=== PATIENT | female | born 1970 | race Caucasian/White ===

== ENCOUNTER 2018-02-14 10:44 | Observation (INO) | payer OTHER ==
[2018-02-14] MEDS ORDERED: NS 1,000 ML IV ONE (10:50)
--- NOTE | 2018-02-14 11:08 | CPEKG ---
Heart Rate: 87 RR Interval: 690 P-R Interval: 132 QRSD Interval: 78 QT Interval: 372 QTC Interval: 448 P [place]: 0 QRS [place]: 17 T Wave [place]: 34 EKG Severity - BORDERLINE ECG - EKG Impression: SINUS RHYTHM EKG Impression: ATRIAL PREMATURE COMPLEX EKG Impression: BORDERLINE T WAVE ABNORMALITIES Electronically Signed By: Dusty Mcclain 14-Feb-2018 11:19:57
[2018-02-14 11:21] LABS: PLATELET COUNT 338 10^3/uL (150-400)
--- NOTE | 2018-02-14 11:21 | PDGENHP ---
History & Physical Chief Complaint: palpitations, presyncope Relevant Physical Exam: s1s2 rrr cta ao3 Cardiorespiratory Assessment: EPS to assess for wide complex tachycardia, palpitations and presyncope
[2018-02-14 11:30] LABS: INR 0.9 (0.83-1.16); PROTIME(PATIENT) 12.4 SEC (12.0-15.0)
[2018-02-14] MEDS ORDERED: MIDAZOLAM 2 MG/2 ML VIAL IVP ONE (11:48)
--- NOTE | 2018-02-14 11:48 | PDANEPAE ---
ANE History of Present Illness SVT for EP study ANE Past Medical History - Cardiovascular History Hx Hypertension: No Hx Arrhythmias: Yes Hx Chest Pain: No Hx Coronary Artery / Peripheral Vascular Disease: No Hx CHF / Valvular Disease: No Hx Palpitations: Yes - Pulmonary History Hx COPD: No Hx Asthma/Reactive Airway Disease: No Hx Recent Upper Respiratory Infection: No Hx Oxygen in Use at Home: No Hx Sleep Apnea: No ANE Review of Systems Review of systems is: negative Review of Systems: - Exercise capacity Exercise capacity: >=4 METS ANE Patient History - Allergies Allergies/Adverse Reactions: egg [eggs] Allergy (Verified 02/09/18 11:23) Penicillins Allergy (Verified 02/09/18 11:23) UNK Sulfa (Sulfonamide Antibiotics) Allergy (Verified 02/09/18 11:23) Swelling/neck,face,throat - Home Medications Home medications: home medication list seen and reviewed Home Medications: Diltiazem [Cardizem Immediate Release] 30 mg PO DAILY PRN 02/09/18 [Last Taken Unknown] Herbals/Supplements -Info Only 1 ea PO DAILY 02/09/18 [Last Taken 02/09/18] Metoprolol Succinate Xr [Toprol Xl 50 mg (*)] 50 mg PO DAILY 02/09/18 [Last Taken 02/07/18] Multivitamins [Multivitamin (*)] 1 each PO DAILY 02/09/18 [Last Taken 02/09/18] [place]-3 Fatty Acids [Fish Oil 1000 mg (*)] 1,000 mg PO DAILY 02/09/18 [Last Taken 02/09/18] - Anes Hx Anes Hx: no prior problems - Smoking Hx Smoking Status: Never smoked ANE Labs/Vital Signs - Labs Result Diagrams: 02/14/18 11:10 02/14/18 11:10 - Vital Signs Height: 155 cm Weight: 68 kg ANE Physical Exam - Airway Neck exam: FROM Mallampati Score: Class 1 Mouth exam: normal dental/mouth exam - Pulmonary Pulmonary: no respiratory distress - Cardiovascular Cardiovascular: regular rate and rhythym - ASA Status ASA Status: II ANE Anesthesia Plan Anesthesia Plan: general endotracheal anesthesia
[2018-02-14] MEDS ORDERED: ONDANSETRON 4 MG/2 ML VIAL ONE ×2 (11:49→14:54)
[2018-02-14] MEDS ORDERED: DEXAMETHASONE 4 MG/ML VIAL ONE (11:49)
[2018-02-14] MEDS ORDERED: fentaNYL 100 MCG/2 ML INJ ONE (11:49)
[2018-02-14] MEDS ORDERED: PROPOFOL 200 MG/20 ML VIAL ONE ×2 (11:49→14:11)
[2018-02-14] MEDS ORDERED: ROCURONIUM 100 MG/10 ML VIAL ONE (11:50)
[2018-02-14] MEDS ORDERED: LIDOCAINE 2% 5 ML SDV ONE (11:50)
[2018-02-14] MEDS ORDERED: LIDOCAINE 1% 300 MG/30 ML SDV ONE (12:01)
[2018-02-14] MEDS ORDERED: HEPARIN 10,000 UNIT/10 ML MDV (1,000 UNIT/ML) ONE ×2 (12:01→13:26)
[2018-02-14] MEDS ORDERED: BUPIVACAINE 0.5% 30 ML SDV ONE (12:01)
[2018-02-14] MEDS ORDERED: ISOPROTERENOL HCL/D5W 0.2 MG/50 ML BAG IV ONE (12:02)
[2018-02-14] MEDS ORDERED: MIDAZOLAM 2 MG/2 ML VIAL ONE (12:07)
[2018-02-14] MEDS ORDERED: HEPARIN/DEXTROSE 25,000 UNIT/500 ML BAG ONE (13:26)
--- NOTE | 2018-02-14 13:41 | POSTANESTH ---
Post Anesthetic Evaluation Cardiovascular Status: Normal, Stable Respiratory Status: Normal, Stable Level of Consciousness/Mental Status: Can Participate in Eval, Alert and Oriented Pain Control: Adequate, Prn Tx Ordered Nausea/Vomiting Control: Inadeq, Add Tx Reqired Complications Possibly Related to Anesthesia: None Noted
[2018-02-14] MEDS ORDERED: PHENYLEPHRINE HCL 100 MCG/ML SYR ONE (13:52)
[2018-02-14] MEDS ORDERED: ROCURONIUM 50 MG/5 ML VIAL ONE ×2 (14:11)
[2018-02-14] MEDS ORDERED: PROTAMINE SULFATE 50 MG/5 ML VIAL IVP ONE (14:35)
[2018-02-14] MEDS ORDERED: ATROPINE SULFATE 1 MG/10 ML SYR ONE (14:59)
[2018-02-14] MEDS ORDERED: METOCLOPRAMIDE 10 MG/2 ML VIAL IVP PRN (15:03)
[2018-02-14] MEDS ORDERED: PROMETHAZINE HCL 25 MG/ML INJ IVP PRN (15:03)
[2018-02-14] MEDS ORDERED: NS 500 ML IV PRN (15:03)
[2018-02-14] MEDS ORDERED: ONDANSETRON 4 MG/2 ML VIAL IVP PRN (15:03)
[2018-02-14] MEDS ORDERED: NALOXONE HCL 0.4 MG/ML INJ IVP PRN (15:03)
[2018-02-14] MEDS ORDERED: ALBUTEROL 3 ML DEYVIAL IH PRN (15:03)
--- NOTE | 2018-02-14 15:12 | EPPROC ---
Electrophysiology Procedure Note: ELECTROPHYSIOLOGIC STUDY AND CATHETER MEDIATED ABLATION OF LEFT POSTEROLATERAL ACCESSORY PATHWAY RETROAORTIC APPORACH FOR ACCESS Procedures performed: 10868-86 EP evaluation with RA/RV/LA pace/record, with arrhythmia induction 22407-87 EP evaluation with RA/RV pace record, insert/reposition catheter, with arrhythmia induction 83285 Intracardiac catheter ablation, SVT arrhythmogenic focus 77877 3D mapping Fluoroscopy INDICATION: Palpitations with presyncope since teenage years PROCEDURE: Catheters and anesthesia: The patient arrived in the Electrophysiology Laboratory in the fasting state. The right clavicular region, right groin, and left groin area were prepped and draped in the usual sterile manner. Anesthesiologist Dr. Irasema Mcneil administered general anesthesia. Appropriate non-invasive blood pressure, pulse oximetry and end-tidal CO2 monitoring was established. All catheters were placed percutaneously using the modified Seldinger technique , and advanced into position under fluoroscopic guidance One #7 Polish deflectable octapolar electrode catheter was advanced to the His-bundle position via the left femoral vein (2mm spacing). One #7 [place] deflectable catheter with 10 pairs of electrodes was placed via the right femoral vein into the coronary sinus. SL2 sheath was needed for access to the CS. Programmed stimulation of the right atrium, right ventricle and coronary sinus ( left atrium) was performed. Parahisian pacing demonstrated two patterns of retrograde atrial activation during His bundle capture and loss of His bundle capture. This demonstrated the presence of an accessory pathway ( 0500 oclock at the mitral annulus as seen in the UGANDAN view). 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 In preparation for ablation of the left posterolateral accessory pathway right femoral artery was accessed. Heparin was given to keep ACT >250 s. Catheter was advanced (with J curve) from descending aorta into the left ventricle. Mapping was perfomed during ventricular pacing. A sharp retrograde accessory pathway potential was recorded at 0500 oclock at the mitral annulus as seen in the UGANDAN view. This preceded the earliest atrial activation by 15 ms. RF#1 was delivered to this site. RF#1 blocked conduction in the accessory pathway after 5 seconds of initiation of ablation. Additional RF 2-4 were delivered slightly anterior and posterior to RF1 site. Programmed stimulation from the RA, CS, right and left ventricle during the baseline state post ablation and during infusion of isoproterenol 2 and 4 mcg/ min confirmed that there was no conduction over the left posterolateral accessory pathway and no orthodromic AVRT could be induced. There was antegrade slow AV leida pathway conduction but no AVNRT was inducible. Up to 4 beats of atrial tachycardia were also seen but not targeted for ablation. Programmed ventricular stimulation did not induce any VT. The catheters were removed. Vascular access sheaths were removed in the EP lab after placing subcutaneous pursestring suture. The patient was transferred to the cardiovascular holding area in stable condition. There were no apparent complications. Results: A. Spontaneous Intervals: Pre ablation SCL 640 ms AH 55 ms HV 40 ms Post ablation SCL 680 ms AH 55 ms HV 40 ms B. Antegrade AV leida function (decremental pacing) Pre ablation FPERP 340 ms SPERP 330 ms WBB CL 320 ms Post ablation FPERP 290 ms WBB CL 280 ms C. Retrograde AV leida function (decremental pacing) Post ablation FPERP 310 ms WBB CL 300 ms D. Accessory pathway function 1. A single AV accessory pathway was identified at the mitral annulus at 0500 oclock as seen in the UGANDAN view. 2. The AV accessory pathway conducted in the retrograde direction. During ventricular pacing 1:1 conduction over the accessory pathway was maintained to a cycle length of 290 ms, block over the AP occurred at 280 ms. E. Arrhythmias: 1. Atrial premature beats induced orthodromic AV reentrant tachycardia using the left posterolateral accessory AV pathway. Tachycardia cycle length: 320 ms AH interval 170 ms HV interval 40ms VA interval (His) 110 ms Shortest VA interval 70 ms at 0500 o clock mitral annulus CONCLUSIONS: 1. A single left posterolateral accessory pathway, which exhibited conduction in the retrograde direction. 2. 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 3. Successful ablation of the left posterior accessory pathway with elimination of AV reentrant tachycardia. Retroaortic approach for access. 4. No apparent complications. Patient Problems: Problems Problem Status Onset Palpitations Acute
--- NOTE | 2018-02-14 15:28 | CPEKG ---
Heart Rate: 79 RR Interval: 759 P-R Interval: 116 QRSD Interval: 76 QT Interval: 428 QTC Interval: 491 P [place]: 68 QRS [place]: 18 T Wave [place]: 25 EKG Severity - BORDERLINE ECG - EKG Impression: SINUS RHYTHM EKG Impression: BORDERLINE PROLONGED QT INTERVAL Electronically Signed By: Dusty Mcclain 15-Feb-2018 08:43:26
[2018-02-15 04:10] LABS: PLATELET COUNT 319 10^3/uL (150-400)
[2018-02-15] MEDS ORDERED: OMEGA-3 FATTY ACIDS 1,000 MG CAP PO SCH (09:00)
[2018-02-15] MEDS ORDERED: ASPIRIN 81 MG CHEWABLE TAB PO SCH (09:00)
[2018-02-15] MEDS ORDERED: MULTIVITAMINS 1 EACH TAB PO SCH (09:00)
--- NOTE | 2018-02-15 09:01 | ASMTCMCOM ---
CM Note CM Note Notes: 02/15/2018 Case Management Note Reviewed chart. Pt admitted post EP to address presyncope, palpitations and wide complex tachycardia. There are no PT or OT evals ordered at this time. There are no case management d/c needs identified d/t pt age, employment status and independence in ADL's prior to admission. Case Management d/c poc: independent. Case Management available if needs change. Date Signed: 02/15/2018 08:59 AM Electronically Signed By:Vane John RN
--- NOTE | 2018-02-15 09:08 | CPEKG ---
Heart Rate: 72 RR Interval: 833 P-R Interval: 108 QRSD Interval: 80 QT Interval: 396 QTC Interval: 434 P [place]: 43 QRS [place]: 4 T Wave [place]: 16 EKG Severity - BORDERLINE ECG - EKG Impression: SINUS RHYTHM EKG Impression: SHORT AL INTERVAL EKG Impression: BORDERLINE T ABNORMALITIES, ANTERIOR LEADS Electronically Signed By: Dusty Mcclain 15-Feb-2018 16:27:18
[2018-02-15 11:04] VITALS: BP 112/74
--- NOTE | 2018-02-15 11:51 | ECHO ---
[email or web address] [address] [address] Main: [phone] Fax: Transthoracic Echocardiogram Name: JORGE ALLEN MR#: [id number] Study Date: 02/15/2018 Study Time: 08:13 AM Date of : 1970 Age: 47 year(s) Height: 154.9 cm (61 in.) Weight: 67.59 kg (149 lb.) BSA: 1.67 m2 Gender: Female Examination: Echo Indication: Post EP Image Quality: Contrast: Requested by: Dusty Mcclain BP: 137 mmHg/72 mmHg Heart Rate: Rhythm: Normal sinus rhythm Indication: Post EP Procedure Staff Critical Care Nurse Practitioner: Gustavo Kiran RDCS Reading Physician: Dusty Mcclain MD Requesting Provider: Conclusions: Normal global systolic LV function. Normal diastolic LV function. No pericardial effusion. Measurements: Chambers Valvular Assessment AV/MV Valvular Assessment TV/PV Normal Normal Normal Name Value Range Name Value Range Name Value Range Ao So (MM): 2.6 cm (2.2 cm-3.7 AV Vmax: 1.06 m/s (1 m/s-1.7 PV Vmax: 0.87 m/s (0.6 m/s-0.9 cm) m/s) m/s) IVSd (2D): 0.8 cm (0.6 cm-1.1 AV maxP mmHg ( - ) PV PGmax: 3 mmHg ( - ) cm) LVOT Vmax: 0.54 m/s (0.7 m/s-1.1 LVDd (2D): 4.2 cm (3.9 cm-5.3 m/s) cm) MV E Vmax: 0.72 m/s ( - ) LVDs (2D): 2.5 cm (2.1 cm-4 MV A Vmax: 0.38 m/s ( - ) cm) MV E/A: 1.89 ( - ) LVPWd (2D): 0.7 cm ( - ) LVEF (2D): 72 (>=54 %) Continued Measurements: Chambers Valvular Assessment AV/MV Name Value Name Value LADs Lon.2 cm MV E' Septal: 0.10 m/s LA Area: 10.9 cm2 MV E/E' Septal: 6.90 LA Volume: 25 ml MV E/E' Lateral: 6.50 LA Volume Index: 15.0 ml/m2 Patient: JORGE ALLEN Study Date: 02/15/2018 Page 1 of 2 08:13 AM Findings: Left Ventricle: Normal size left ventricle. No LV hypertrophy. Normal global systolic LV function. EF is 72 %. No regional wall motion abnormality. Normal diastolic LV function. Right Ventricle: Normal size right ventricle. Left Atrium: The left atrium is normal in size. Right Atrium: The right atrium is normal in size. Mitral Valve: The mitral valve is normal in appearance and function. Aortic Valve: The aortic valve is normal in appearance and function. Tricuspid Valve: The tricuspid valve is normal in appearance and function. Pulmonic Valve: The pulmonic valve is normal in appearance and function. Aorta: The aorta is normal. Pericardium: No pericardial effusion. (No Signature Object) Patient: JORGE ALLEN Study Date: 02/15/2018 Page 2 of 2 08:13 AM D:_[id number]
--- NOTE | 2018-02-15 12:31 | ASDISCHSUM ---
Discharge Information Plan Status:Home with No Needs Medically Cleared to Leave:02/15/2018 Discharge Date:02/15/2018 CM D/C Disposition:Home, Routine, Self-Care ADT D/C Disposition:Home, Routine, Self-Care Projected Discharge Date:02/15/2018 Transportation at D/C:Family Discharge Delay Reason: Follow-Up Date:02/15/2018 Discharge Slot: Final Diagnosis: Placement Information Patient Contact Information Contact Name:CELESTINO Relationship:Mother Address: Work Phone: City: [facility] Phone: State/[place] Code: Email: Financial Information Financial Class:HMO and PPO Plans Primary Plan Desc:[employer] Primary Plan Number:[id number] Secondary Plan Desc: Secondary Plan Number: Assessment Information LACE LACE Length of stay for Answers: Less than 1 day current admission Acuity / Level of Answers: No Care: Did the patient have an inpatient admission? Comorbidities - select Answers: Other Notes: wide complex all that apply tachycardia, palpitatio ns, presyncope # of Emergency department Answers: 0 visits in the last 6 months Score: 1 Date Signed: 02/15/2018 12:30 PM Electronically Signed By:Vane John RN [facility] CM Progress Note CM Note CM Note Notes: 02/15/2018 Case Management Note Reviewed chart. Pt admitted post EP to address presyncope, palpitations and wide complex tachycardia. There are no PT or OT evals ordered at this time. There are no case management d/c needs identified d/t pt age, employment status and independence in ADL's prior to admission. Case Management d/c poc: independent. Case Management available if needs change. Date Signed: 02/15/2018 08:59 AM Electronically Signed By:Vane John RN Intervention Information
--- NOTE | 2018-02-15 18:52 | GDS ---
[f rep st] DISCHARGE SUMMARY ADMIT DIAGNOSES: 1. Nonsustained wide-complex tachycardia. 2. Supraventricular tachycardia. 3. Presyncope. 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 COURSE OF HOSPITALIZATION: Mary was seen [address] Nyla Sorenson in clinic, with episodes of nonsustained rapid heart rates. She has a history of nonsustained wide-complex tachycardia, which was seen on stress testing previously. She saw Dr. Mcclain in November 2017, and at that time, he recommended electrophysiology study and likely ablation therapy. Her main complaint was episodes of palpitations, which were not controlled with low-dose metoprolol. At times she had presyncope episodes without syncope. Over time, she was having longer episodes of tachyarrhythmias with some chest discomfort and shortness of breath. She did have a nonischemic stress echocardiogram done in the recent past. It was recommended by Dr. Sorenson to proceed with the upcoming electrophysiology study. She was taken to the electrophysiology lab by Dr. Dusty Mcclain on 02/14/2018. He was able to isolate the pathway. Conclusion of his electrophysiology study: 1. A single left posterior lateral accessory pathway, which exhibited conduction in the retrograde direction. 2. 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 3. Successful ablation of the left posterior accessory pathway with elimination of AV reentrant tachycardia. Retroaortic approach was utilized for access. 4. There were no apparent complications. She was taken to the PCU for overnight observation where she has done well. Her bilateral groin sites are intact with no bleeding, induration or pain. She is anxious about having subsequent rapid heart rates. Dr. Mcclain did come in and visit with her and gave her reassurance. He discussed the procedure with her and the successful ablation of the left posterior pathway, which did eliminate the reentrant tachycardia. She is feeling well with no recurring palpitations. At his time, she currently is stable for discharge. DISCHARGE MEDICATIONS: She will go home on omega-3 fatty acid fish oil 1000 mg daily, multivitamin daily, herbal supplements 1 daily, aspirin 81 mg daily, diltiazem 30 mg as needed for breakthrough rapid heart rate, aspirin 81 mg daily. Metoprolol succinate was stopped. PHYSICAL EXAMINATION: VITAL SIGNS: On day of discharge, blood pressure 112/74 , heart rate 82 and regular, oxygen saturation 96%, temperature 36.9 Celsius. EKG showed normal sinus rhythm. CARDIAC: Heart rate regular. No murmurs, rubs , gallops. RESPIRATORY: Lung sounds are clear to auscultation. No wheezes, rales, or rhonchi. SKIN: Bilateral groin sites are intact with no bleeding, induration or pain. LOWER EXTREMITIES: Peripheral pulses are intact. No edema was noted. PROCEDURE: Echocardiogram on 02/15/2018: Left ventricular function is 72%. Normal wall motion abnormalities. No significant valve problems. No pericardial effusion. DISCHARGE PLAN: 1. Groin precautions were given verbally and written for 1 week. No heavy lifting, pushing, pulling greater than 10 pounds. 2. No tub baths. 3. Should site bleed, hold firm pressure to site, go to the emergency room if bleeding does not stop. 4. Follow up with Dr. Mcclain in 4 weeks. This has been scheduled previously. 5. She is instructed to call the office should she have any concerns or questions. At this time, she currently is stable for discharge. /[id number]/MODL MTDD
== END 2018-02-15 13:23 | disposition home or self-care (01) ==
LOC: FCATH 10:44 → F2W 14:35
PROVIDERS: ADMIT Internal Medicine Cardiovascular Disease; ATTEND Internal Medicine Cardiovascular Disease
DX: I47.1 Supraventricular tachycardia (principal); R55 Syncope and collapse
CPT/HCPCS: 93005; 93306; 93613; 93621; 93623; 93653; C1730; C1732; C1893; G0378; C1731; J0461; J1100; J1644; J2250; J2370; J2405; J2704; J2720; J3010

== ENCOUNTER 2018-06-20 14:07 | Emergency (ER) | payer OTHER ==
--- NOTE | 2018-06-20 14:26 | EDPHY ---
HPI/HX/ROS/PE/MDM Narrative: CHIEF COMPLAINT: Chest pain, shortness of breath HPI: The patient is a 47-year-old female with a history of prior wide complex tachycardia that was successfully ablated earlier this year. The patient has been her usual state of health until yesterday. She states she went on a run and did not experience discomfort during the run but did feel slightly ill afterwards. She when out to dinner that evening and noted shortness of breath and difficulty catching her breath. She describes some chest discomfort that time without klaus pain. She then developed severe watery diarrhea which lasted over the course of the evening and through the morning. She denies any blood in her stool, abdominal pain or vomiting. She was able to go to work this morning but continues to experience shortness of breath and chest discomfort with some radiation to her left neck and arm. She called [facility] this afternoon who recommended that she proceed to the emergency department. REVIEW OF SYSTEMS: Aside from elements discussed in the HPI, a comprehensive 10-point review of systems was reviewed and is negative. PMH: Includes cardiac ablation, no known coronary artery disease. SOCIAL HISTORY: Works at the [employer]. Denies drug abuse. PHYSICAL EXAM: General:Patient is alert, in no acute distress. ENT:Eyes are normal to inspection. ENT inspection normal. Neck: Normal inspection. Full range of motion. Respiratory:No respiratory distress. Breath sounds normal bilaterally. Cardiovascular: Regular rate and rhythm. Strong peripheral pulses. Normal cap refill. Abdomen:The abdomen is nontender to palpation. There are no peritoneal signs. There are normal bowel sounds. Back: Normal to inspection. No tenderness to palpation. Skin: Normal color. No rash. Warm and dry. Extremities: Normal appearance. Full range of motion. Neuro: Oriented x3. Normal motor function. Normal sensory function. (Mauricio Pelaez) ED Course: EKG: NSR without ST changes. Patient signed out to Dr. Jack at 2:50pm pending labs and CXR. (Mauricio Pelaez) MDM: Patient's care transferred to [place] at 3:00 p.m.. The patient is well appearing. She is constantly coughing. No fever. Not hypoxic. X-ray consistent with bronchitis. Troponin and D-dimer negative. Her diarrhea and vomiting have resolved. I suspect that this is more of a respiratory illness than cardiac. She will keep her appointment tomorrow with Dr. Mcclain. She declines further workup or testing at this time. (Mykel Jack) - Data Points Imaging Results: Imaging Impressions Chest X-Ray 06/20/18 15:03 Impression: Mild airways disease. Otherwise normal. Laboratory Results: Laboratory Results 06/20/18 14:50 06/20/18 06/20/18 06/20/18 14:57 14:57 14:50 WBC 5.30 10^3/uL 10^3/uL (3.80-9.50) RBC 4.82 10^6/uL 10^6/uL (4.18-5.33) Hgb 14.8 g/dL g/dL (12.6-16.3) Hct 42.9 % % (38.0-47.0) MCV 89.0 fL fL (81.5-99.8) MCH 30.7 pg pg (27.9-34.1) MCHC 34.5 g/dL g/dL (32.4-36.7) RDW 12.6 % % (11.5-15.2) Plt Count 329 10^3/uL 10^3/uL (150-400) MPV 9.7 fL fL (8.7-11.7) Neut % (Auto) 66.2 % % (39.3-74.2) Lymph % (Auto) 24.5 % % (15.0-45.0) [place] % (Auto) 7.4 % % (4.5-13.0) Eos % (Auto) 0.9 % % (0.6-7.6) Baso % (Auto) 0.8 % % (0.3-1.7) Nucleat RBC Rel Count 0.0 % % (0.0-0.2) Absolute Neuts (auto) 3.51 10^3/uL 10^3/uL (1.70-6.50) Absolute Lymphs (auto) 1.30 10^3/uL 10^3/uL (1.00-3.00) Absolute Monos (auto) 0.39 10^3/uL 10^3/uL (0.30-0.80) Absolute Eos (auto) 0.05 10^3/uL 10^3/uL (0.03-0.40) Absolute Basos (auto) 0.04 10^3/uL 10^3/uL (0.02-0.10) Absolute Nucleated RBC 0.00 10^3/uL 10^3/uL (0-0.01) Immature Gran % 0.2 % % (0.0-1.1) Immature Gran # 0.01 10^3/uL 10^3/uL (0.00-0.10) POC Sodium 143 mEq/L mEq/L (135-145) POC Potassium 3.9 mEq/L mEq/L (3.3-5.0) POC Chloride 102.0 mEq/L mEq/L (97-110) POC Total CO2 26 mEq/L mEq/L (22-31) POC BUN 13 mg/dL mg/dL (7-23) POC Creatinine 1.0 mg/dL mg/dL (0.6-1.0) POC Glucose 120 mg/dL H mg/dL (70-100) POC Calcium 10.0 mg/dL mg/dL (8.5-10.4) POC Troponin I 0.00 ng/mL ng/mL (0.00-0.08) Point of Care Test Results: Chemistry 06/20/18 06/20/18 14:57 14:57 POC Sodium 143 mEq/L mEq/L (135-145) POC Potassium 3.9 mEq/L mEq/L (3.3-5.0) POC Chloride 102.0 mEq/L mEq/L (97-110) POC Total CO2 26 mEq/L mEq/L (22-31) POC BUN 13 mg/dL mg/dL (7-23) POC Creatinine 1.0 mg/dL mg/dL (0.6-1.0) POC Glucose 120 mg/dL H mg/dL (70-100) POC Calcium 10.0 mg/dL mg/dL (8.5-10.4) POC Troponin I 0.00 ng/mL ng/mL (0.00-0.08) D-Dimer D-Dimer Collection Date 06/20/18 D-Dimer Collection Time 14:50 D-Dimer (ng/ml) <100 General Time Seen by Provider: 06/20/18 14:11 Initial Vital Signs: Initial Vital Signs Temperature (C) 36.6 C 06/20/18 14:13 Heart Rate 85 06/20/18 14:13 Respiratory Rate 18 06/20/18 14:13 Blood Pressure 144/87 H 06/20/18 14:13 O2 Sat (%) 97 06/20/18 14:13 O2 Delivery Mode Room Air Allergies/Adverse Reactions: egg [eggs] Allergy (Verified 06/20/18 14:15) Penicillins Allergy (Verified 06/20/18 14:15) UNK Sulfa (Sulfonamide Antibiotics) Allergy (Verified 06/20/18 14:15) Swelling/neck,face,throat Home Medications: Medication Instructions Recorded Multivitamins [Multivitamin (*)] 1 each PO DAILY 02/09/18 [place]-3 Fatty Acids [Fish Oil 1000 1,000 mg PO DAILY 02/09/18 mg (*)] Calcium 06/20/18 Magnesium 06/20/18 Departure - Departure Disposition: Home, Routine, Self-Care Clinical Impression: Bronchitis Condition: Fair Instructions: Acute Bronchitis (ED) Referrals: Siria Baptiste [Primary Care Provider] - As per Instructions Dusty Mcclain MD [Medical Doctor] - 1 day without fail Stand Alone Forms: Work Excuse
--- NOTE | 2018-06-20 15:10 | CPEKG ---
Test Reason : OPEN Blood Pressure : / mmHG Vent. Rate : 086 BPM Atrial Rate : 085 BPM P-R Int : 110 ms QRS Dur : 080 ms QT Int : 385 ms P-R-T Axes : 069 030 029 degrees QTc Int : 461 ms Sinus rhythm Confirmed by Mykel Jack ([id number]) on 06/20/2018 3:09:33 PM Referred By: Confirmed By:Mykel Jack
[2018-06-20 16:33] LABS: PLATELET COUNT 329 10^3/uL (150-400)
[2018-06-20 16:42] VITALS: BP 115/81
== END 2018-06-20 16:40 | disposition home or self-care (01) ==
LOC: CED 14:07
DX: J40 Bronchitis, not specified as acute or chronic (principal)
CPT/HCPCS: 71046-PO; 80048-PO; 84484-PO